=== PATIENT | female | born 1995 | race American Indian/Alaskan Native ===

== ENCOUNTER 2017-03-20 19:34 | Emergency (ER) | payer MEDICAID ==
[~2017-03-20] VITALS: Ht 152.4 cm; Wt 69.6 kg
[2017-03-20 19:39] VITALS: BP 125/72
== END 2017-03-21 03:54 | disposition left against medical advice (07) ==
LOC: ER 19:34
DX: Z04.8 Encounter for examination and observation for other specified reasons (principal); R10.30 Lower abdominal pain, unspecified; Z53.21 Procedure and treatment not carried out due to patient leaving prior to being seen by health care provider